=== PATIENT | female | born 1960 | race Hispanic/Latino ===

== ENCOUNTER 2021-07-03 10:03 | Emergency (ER) | payer OTHER ==
[~2021-07-03] VITALS: Ht 152.4 cm; Wt 67.1 kg
[2021-07-03] MEDS ORDERED: SODIUM CHLORIDE 0.9% 1000ML 1,000 ML IV STA (10:06)
[2021-07-03 11:21] LABS: ALBUMIN 4.4 g/dL (3.5-5.0); ALBUMIN/GLOBULIN RATIO 1.4 (0.8-2.0); ANION GAP 13.5 mmol/L (8-16); CALCIUM 8.8 mg/dL (8.4-10.2); CREATININE, SERUM 0.79 mg/dL (0.57-1.11); MAGNESIUM 2.1 MG/DL (1.3-2.1); POTASSIUM 3.5 mmol/L (3.5-5.1)
[2021-07-03 11:22] LABS: BASOPHILS % 0.5 % (0.0-1.0); EOSINOPHILS # (AUTO) 0.1 (0.0-0.4); EOSINOPHILS % 1.5 % (0.0-6.0); HEMATOCRIT 42.5 % (34.2-44.1); HEMOGLOBIN 14.4 g/dL (12.0-16.0); LYMPHOCYTES # (AUTO) 3.5 (1.0-3.2); LYMPHOCYTES % 41.2 % (18.0-39.1); MEAN CORPUSCULAR HEMOGLOBIN 31.2 pg (28-32); MEAN CORPUSCULAR HGB CONC 33.9 g/dL (31-35); MONOCYTES # (AUTO) 0.7 (0.2-0.8); MONOCYTES % 8.7 % (4.4-11.3); NEUTROPHILS # (AUTO) 4.1 (2.1-6.9); NEUTROPHILS % 47.7 % (38.7-80.0); PLATELET COUNT 293 x10e3/uL (140-360); RED BLOOD COUNT 4.62 x10e6/uL (3.6-5.1); RED CELL DISTRIBUTION WIDTH 12.3 % (11.7-14.4)
[2021-07-03 11:41] LABS: CREATINE KINASE MB 0.8 ng/mL (0-5.0); THYROID STIMULATING HORMONE 1.43 uIU/mL (0.350-4.940)
[2021-07-03] MEDS ORDERED: KETOROLAC TROMETHAMINE 30 MG/ML VIAL IV ONE (12:50)
[2021-07-03 14:00] VITALS: BP 102/60
== END 2021-07-03 14:04 | disposition home or self-care (01) ==
LOC: ER 10:06
DX: R00.2 Palpitations (principal); R51.9 Headache, unspecified; R11.0 Nausea; I10 Essential (primary) hypertension
CPT/HCPCS: 36415; 70450; 71045; 80053; 82550; 82553; 83735; 84443; 84484; 85025; 93005; 99284; J1885; J7030; U0002

== ENCOUNTER → 2021-12-01 | Outpatient (CLI) | payer OTHER | LOC: RAD 14:53 | PROVIDERS: ATTEND Internal Medicine | DX: K59.00 Constipation, unspecified (principal) | CPT/HCPCS: 74018 ==

== ENCOUNTER 2022-01-20 15:50 | Emergency (ER) | payer OTHER ==
[~2022-01-20] VITALS: Ht 152.4 cm; Wt 67.1 kg
[2022-01-20] MEDS ORDERED: ASPIRIN 325 MG TAB PO ONE (16:45)
[2022-01-20] MEDS ORDERED: ALPRAZOLAM 0.5 MG TAB PO ONE (16:45)
[2022-01-20 16:47] LABS: BASOPHILS # (AUTO) 0.1 (0.0-0.1); BASOPHILS % 0.5 % (0.0-1.0); EOSINOPHILS # (AUTO) 0.1 (0.0-0.4); EOSINOPHILS % 0.5 % (0.0-6.0); HEMOGLOBIN 16.3 g/dL (12.0-16.0); LYMPHOCYTES # (AUTO) 3.5 (1.0-3.2); LYMPHOCYTES % 31.6 % (18.0-39.1); MEAN CORPUSCULAR VOLUME 94.1 fL (81-99); MONOCYTES # (AUTO) 0.9 (0.2-0.8); MONOCYTES % 8.5 % (4.4-11.3); NEUTROPHILS # (AUTO) 6.4 (2.1-6.9); NEUTROPHILS % 58.6 % (38.7-80.0); PLATELET COUNT 281 x10e3/uL (140-360); RED CELL DISTRIBUTION WIDTH 12.7 % (11.7-14.4)
[2022-01-20 17:10] LABS: ALBUMIN 4.7 g/dL (3.5-5.0); ALBUMIN/GLOBULIN RATIO 1.3 (0.8-2.0); ANION GAP 15.1 mmol/L (8-16); CALCIUM 9.7 mg/dL (8.4-10.2); CREATININE, SERUM 0.84 mg/dL (0.57-1.11); POTASSIUM 4.1 mmol/L (3.5-5.1)
[2022-01-20] MEDS ORDERED: HYDROCODONE/APAP 5MG-325MG TAB ONE (18:09)
[2022-01-20] MEDS ORDERED: HYDROCODONE/APAP 5MG-325MG TAB PO ONE (18:30)
== END 2022-01-20 18:54 | disposition home or self-care (01) ==
LOC: ER 16:10
DX: R07.89 Other chest pain (principal); I10 Essential (primary) hypertension; E78.5 Hyperlipidemia, unspecified; K21.9 Gastro-esophageal reflux disease without esophagitis; F41.9 Anxiety disorder, unspecified
CPT/HCPCS: 36415; 71045; 80053; 84484; 85025; 85379; 93005; 99284

== ENCOUNTER 2022-03-17 06:50 | Emergency (ER) | payer OTHER ==
[~2022-03-17] VITALS: Ht 152.4 cm; Wt 67.1 kg
[2022-03-17] MEDS ORDERED: ONDANSETRON HCL INJ 2MG/ML 2ML 2 MG/ML VIAL IV STA (07:11)
[2022-03-17 07:20] LABS: BASOPHILS # (AUTO) 0.1 (0.0-0.1); BASOPHILS % 0.5 % (0.0-1.0); EOSINOPHILS # (AUTO) 0.2 (0.0-0.4); EOSINOPHILS % 1.5 % (0.0-6.0); HEMATOCRIT 45.5 % (34.2-44.1); HEMOGLOBIN 15.3 g/dL (12.0-16.0); LYMPHOCYTES # (AUTO) 4.3 (1.0-3.2); LYMPHOCYTES % 40.7 % (18.0-39.1); MEAN CORPUSCULAR HEMOGLOBIN 32.1 pg (28-32); MEAN CORPUSCULAR HGB CONC 33.6 g/dL (31-35); MEAN CORPUSCULAR VOLUME 95.6 fL (81-99); MONOCYTES # (AUTO) 0.9 (0.2-0.8); MONOCYTES % 8.8 % (4.4-11.3); NEUTROPHILS # (AUTO) 5.2 (2.1-6.9); NEUTROPHILS % 48.3 % (38.7-80.0); PLATELET COUNT 219 x10e3/uL (140-360); RED BLOOD COUNT 4.76 x10e6/uL (3.6-5.1); RED CELL DISTRIBUTION WIDTH 12.5 % (11.7-14.4)
[2022-03-17] MEDS ORDERED: ONDANSETRON HCL INJ 2MG/ML 2ML 2 MG/ML VIAL ONE (07:27)
[2022-03-17 07:57] LABS: AMYLASE 73 U/L (25-125); LIPASE 60 U/L (8-78)
[2022-03-17 08:12] LABS: ALANINE AMINOTRANSFERASE 19 IU/L (0-55); ALBUMIN/GLOBULIN RATIO 1.3 (0.8-2.0); ALKALINE PHOSPHATASE 50 IU/L (40-150); ANION GAP 17.4 mmol/L (8-16); BLOOD UREA NITROGEN 15 mg/dL (7-26); BUN/CREATININE RATIO 18 (6-25); CALCIUM 8.9 mg/dL (8.4-10.2); CARBON DIOXIDE 21 mmol/L (22-29); CHLORIDE 106 mmol/L (98-107); CREATINE KINASE 44 IU/L (29-168); CREATININE, SERUM 0.85 mg/dL (0.57-1.11); GLUCOSE 140 mg/dL (74-118); POTASSIUM 3.4 mmol/L (3.5-5.1); SODIUM 141 mmol/L (136-145)
[2022-03-17] MEDS ORDERED: IOPAMIDOL 370 MG/ML 100 ML INFUS..BTL INJ ONE (08:30)
[2022-03-17] MEDS ORDERED: OMEPRAZOLE40 MG PO (09:10)
[2022-03-17] MEDS ORDERED: ONDANSETRON ODT4 MG PO (09:11)
[2022-03-17] MEDS ORDERED: AZITHROMYCIN250 MG PO (09:18)
[2022-03-17] MEDS ORDERED: PREDNISONE50 MG PO (09:18)
[2022-03-17 09:37] VITALS: BP 135/76
== END 2022-03-17 09:37 | disposition home or self-care (01) ==
LOC: ER 08:06
DX: R10.13 Epigastric pain (principal); K29.70 Gastritis, unspecified, without bleeding; J06.9 Acute upper respiratory infection, unspecified; J02.9 Acute pharyngitis, unspecified; I10 Essential (primary) hypertension; E78.5 Hyperlipidemia, unspecified; K21.9 Gastro-esophageal reflux disease without esophagitis; F41.9 Anxiety disorder, unspecified
CPT/HCPCS: 36415; 71045; 74177; 80053; 82150; 82550; 82553; 83690; 84484; 85025; 99284; J2405; Q9967

== ENCOUNTER → 2022-04-07 | Day surgery (SDC) | payer OTHER ==
[~2022-04-07] MED LIST: AZITHROMYCIN250 MG PO; DIAZEPAM5 MG PO; FENTANYL CITRATE/PF 100MCG/2 ML INJ ONE; HYOSCYAMINE SULFATE 0.5 MG/ML INJ ONE; LISINOPRIL10 MG PO; METOCLOPRAMIDE HCL 10 MG/2ML VIAL ONE; MIDAZOLAM HCL 2 MG/2 ML VIAL ONE; MILK THISTLE175 M2 PO; OMEPRAZOLE40 MG PO; ONDANSETRON ODT4 MG PO; PREDNISONE50 MG PO; PROBIOTIC & AC1 EACH PO; PROPOFOL IV EMULSION 10 MG/ML 20 ML VIAL ONE
[2022-04-07 15:05] VITALS: BP 137/68
== END | disposition home or self-care (01) ==
LOC: OR 10:36
PROVIDERS: ATTEND Internal Medicine Gastroenterology
DX: K20.90 Esophagitis, unspecified without bleeding (principal); K29.50 Unspecified chronic gastritis without bleeding; K31.7 Polyp of stomach and duodenum; K29.80 Duodenitis without bleeding; K63.3 Ulcer of intestine; K21.9 Gastro-esophageal reflux disease without esophagitis; F41.9 Anxiety disorder, unspecified; I10 Essential (primary) hypertension; Z86.19 Personal history of other infectious and parasitic diseases; Z68.27 Body mass index [BMI] 27.0-27.9, adult; Z90.49 Acquired absence of other specified parts of digestive tract; Z01.812 Encounter for preprocedural laboratory examination; Z20.822 Contact with and (suspected) exposure to COVID-19
CPT/HCPCS: 0223U; 36415; 43239; 45378; J1980; J2250; J2765; J3010

== ENCOUNTER → 2022-11-22 | Outpatient (CLI) | payer OTHER ==
[~2022-11-22] MED LIST changes: -FENTANYL CITRATE/PF 100MCG/2 ML INJ ONE; -HYOSCYAMINE SULFATE 0.5 MG/ML INJ ONE; -METOCLOPRAMIDE HCL 10 MG/2ML VIAL ONE; -MIDAZOLAM HCL 2 MG/2 ML VIAL ONE; -PROPOFOL IV EMULSION 10 MG/ML 20 ML VIAL ONE
== END ==
LOC: RAD 13:11
PROVIDERS: ATTEND Internal Medicine
DX: M46.86 Other specified inflammatory spondylopathies, lumbar region (principal)
CPT/HCPCS: 72110

== ENCOUNTER → 2022-12-06 | Outpatient (CLI) | payer OTHER | LOC: DX 09:03 | PROVIDERS: ATTEND Internal Medicine | DX: M85.88 Other specified disorders of bone density and structure, other site (principal) | CPT/HCPCS: 77080 ==

== ENCOUNTER 2024-04-06 03:17 | Emergency (ER) | payer MEDICARE ==
[~2024-04-06] VITALS: Ht 152.4 cm; Wt 61.2 kg
[~2024-04-06 03:17] MED LIST changes: +AMLODIPINE BESYL5 MG PO; +ATORVASTATIN CA20 MG PO; +BISACODYL5 MG PO; +DICYCLOMINE HCL20 MG PO; +GABAPENTIN100 MG PO; +HYDROXYZINE PAM25 MG; +IBUPROFEN200 MG PO; +PEPCID20 MG PO; +vitamin d3 PO
[2024-04-06 03:21] VITALS: TEMP 97.9
[2024-04-06] MEDS: ONDANSETRON HCL 4 MG ORAL DISINTEGRATING TAB PO ONE (03:32)
[2024-04-06] MEDS ORDERED: MAGNESIUM/ALUMINUM/SIMETHICONE 30 ML UDC ONE (03:34)
[2024-04-06] MEDS ORDERED: LIDOCAINE VISC 2% SOLN 15 ML UDC ONE (03:34)
[2024-04-06] MEDS ORDERED: BELLADONNA ALK/PHENOBARBITAL 5 ML UDC ONE (03:34)
[2024-04-06] MEDS: LIDOCAINE VISC 2% SOLN 15 ML UDC PO ONE (03:35)
[2024-04-06] MEDS: BELLADONNA ALK/PHENOBARBITAL 5 ML UDC PO ONE (04:09)
[2024-04-06] MEDS: MAGNESIUM/ALUMINUM/SIMETHICONE 30 ML UDC PO ONE (04:09)
[2024-04-06 04:11] VITALS: PULSE 74; RESP 20
[2024-04-06] MEDS: DICYCLOMINE HCL 20 MG/2 ML VIAL IM ONE (04:44)
[2024-04-06] MEDS ORDERED: ONDANSETRON ODT4 MG SL (04:54)
[2024-04-06 05:20] LABS: BASOPHILS % 0.3 % (0.0-1.0); EOSINOPHILS % 0.4 % (0.0-6.0); HEMATOCRIT 39.8 % (34.2-44.1); HEMOGLOBIN 13.4 g/dL (12.0-16.0); LYMPHOCYTES # (AUTO) 1.8 (1.0-3.2); LYMPHOCYTES % 19.1 % (18.0-39.1); MEAN CORPUSCULAR HEMOGLOBIN 31.3 pg (28-32); MEAN CORPUSCULAR HGB CONC 33.7 g/dL (31-35); MONOCYTES # (AUTO) 0.7 (0.2-0.8); MONOCYTES % 7.1 % (4.4-11.3); NEUTROPHILS # (AUTO) 6.8 (2.1-6.9); NEUTROPHILS % 72.9 % (38.7-80.0); PLATELET COUNT 225 x10e3/uL (140-360); RED BLOOD COUNT 4.28 x10e6/uL (3.6-5.1); RED CELL DISTRIBUTION WIDTH 12.2 % (11.7-14.4); WHITE BLOOD COUNT 9.38 x10e3/uL (4.8-10.8)
[2024-04-06 05:35] LABS: ALBUMIN 4.1 g/dL (3.5-5.0); ANION GAP 14.6 mmol/L (8-16); BILIRUBIN,TOTAL 0.3 mg/dL (0.2-1.2); CREATININE, SERUM 0.82 mg/dL (0.57-1.11); LIPASE 68 U/L (8-78); POTASSIUM 3.6 mmol/L (3.5-5.1); TOTAL PROTEIN 6.2 g/dL (6.5-8.1)
[2024-04-06 05:58] VITALS: BP 129/73; PULSE 60; RESP 15; TEMP 98.1; O2SAT 100
[2024-04-06 06:02] LABS: TROPONIN I < 0.05 ng/mL (0.0-0.40)
== END 2024-04-06 06:08 | disposition home or self-care (01) ==
LOC: ER 03:20
DX: R10.13 Epigastric pain (principal); K29.70 Gastritis, unspecified, without bleeding; R11.0 Nausea; I10 Essential (primary) hypertension; E78.5 Hyperlipidemia, unspecified; K21.9 Gastro-esophageal reflux disease without esophagitis; F41.9 Anxiety disorder, unspecified; R94.31 Abnormal electrocardiogram [ECG] [EKG]
CPT/HCPCS: 36415; 80053; 83690; 84484; 85025; 93005; 99284; C9113; J0500; Q0162

== ENCOUNTER 2024-04-10 20:37 | Emergency (ER) | payer MEDICARE ==
[~2024-04-10] VITALS: Ht 152.4 cm; Wt 61.2 kg
[~2024-04-10 20:37] MED LIST changes: +ONDANSETRON ODT4 MG SL
[2024-04-10] MEDS: SODIUM CHLORIDE 0.9% 1000ML 1,000 ML IV STA (21:33)
[2024-04-10 21:57] LABS: BASOPHILS % 0.4 % (0.0-1.0); EOSINOPHILS # (AUTO) 0.2 (0.0-0.4); EOSINOPHILS % 2.4 % (0.0-6.0); HEMATOCRIT 40.6 % (34.2-44.1); HEMOGLOBIN 14.2 g/dL (12.0-16.0); MEAN CORPUSCULAR HEMOGLOBIN 31.8 pg (28-32); MEAN CORPUSCULAR VOLUME 90.8 fL (81-99); MONOCYTES # (AUTO) 0.7 (0.2-0.8); MONOCYTES % 10.4 % (4.4-11.3); NEUTROPHILS % 57.7 % (38.7-80.0); PLATELET COUNT 235 x10e3/uL (140-360); RED BLOOD COUNT 4.47 x10e6/uL (3.6-5.1); RED CELL DISTRIBUTION WIDTH 12.3 % (11.7-14.4)
[2024-04-10 22:03] LABS: ALBUMIN 4.4 g/dL (3.5-5.0); ALBUMIN/GLOBULIN RATIO 1.6 (0.8-2.0); ANION GAP 13.6 mmol/L (8-16); BILIRUBIN,TOTAL 0.8 mg/dL (0.2-1.2); CALCIUM 9.2 mg/dL (8.4-10.2); CREATININE, SERUM 0.82 mg/dL (0.57-1.11); POTASSIUM 3.6 mmol/L (3.5-5.1); TOTAL PROTEIN 7.2 g/dL (6.5-8.1)
[2024-04-10] MEDS: ONDANSETRON HCL INJ 2MG/ML 2ML 2 MG/ML VIAL IV STA (22:10)
[2024-04-10] MEDS: FAMOTIDINE 20 MG/2 ML VIAL IV STA (22:10)
[2024-04-10] MEDS ORDERED: IOPAMIDOL 370 MG/ML 100 ML INFUS..BTL INJ ONE (22:22)
[2024-04-10 22:26] LABS: CREATINE KINASE 63 IU/L (29-168)
[2024-04-10 22:30] LABS: TROPONIN I < 0.05 ng/mL (0.0-0.40)
[2024-04-10 23:52] VITALS: PULSE 68; RESP 19; TEMP 97.7
[2024-04-11 00:29] VITALS: BP 136/65; PULSE 68; RESP 19; TEMP 97.7; O2SAT 98
== END 2024-04-11 00:30 | disposition home or self-care (01) ==
LOC: ER 20:45
DX: R10.13 Epigastric pain (principal); I10 Essential (primary) hypertension; F41.9 Anxiety disorder, unspecified; E78.5 Hyperlipidemia, unspecified
CPT/HCPCS: 36415; 74177; 80053; 82550; 83690; 84484; 85025; 93005; 99284; C9113; J2405; J7030; Q9967; U0002; J2470